=== PATIENT | male | born 1980 | race Native Hawaiian/Other Pacific Islander ===

== ENCOUNTER 2016-08-11 10:03 | Emergency (ER) | payer OTHER ==
[2016-08-11 10:07] VITALS: BMI 34.4
[2016-08-11] MEDS ORDERED: Naproxen 550 mg Tab PO STA (10:40)
[2016-08-11] MEDS ORDERED: Lidocaine/Prilocaine 2.5%-2.5% Cream (5 gm) EXT STA (10:40)
[2016-08-11] MEDS ORDERED: Naproxen 550 mg Tab PO ONE (10:47)
[2016-08-11 11:10] VITALS: BP 112/76; PULSE 74; RESP 20; TEMP 98.2; O2SAT 94
[2016-08-11] MEDS ORDERED: Epinephrine /Lidocaine HCL 1:100,000/2% 30 ml INFIL ONE (11:20)
[2016-08-11] MEDS ORDERED: Lidocaine 2% w Epi 1:100,000 Inj IJ ONE (11:23)
[2016-08-11] MEDS ORDERED: Tmp-Smz 800 mg-160 mg DS Tab PO STA (12:02)
--- NOTE | 2016-08-11 12:03 | C.PDOC ---
History Of Present Illness Pt c/o painful/swollen area. He has h/o Pilonidal cyst and feels the same way. Time Seen by Provider: 08/11/16 10:11 Chief Complaint (Nursing): Abnormal Skin Integrity History Per: Patient Onset/Duration Of Symptoms: Days (3) Current Symptoms Are (Timing): Still Present Location Of Injury: Posterior: Back (lower) Quality Of Symptoms: Painful, Swollen Severity: Moderate Additional History Per: Prior Records Past Medical History Reviewed: Historical Data, Nursing Documentation, Vital Signs Vital Signs: Last Vital Signs Temp 98.2 F 08/11/16 11:09 Pulse 74 08/11/16 11:09 Resp 20 08/11/16 11:09 BP 112/76 08/11/16 11:09 Pulse Ox 94 L 08/11/16 11:09 - Medical History Other PMH: Pilonidal cyst Surgical History: Tonsillectomy Family History: States: Unknown Family Hx - Social History Hx Alcohol Use: No Hx Substance Use: No - Immunization History Hx Tetanus Toxoid Vaccination: No Hx Influenza Vaccination: Yes Hx Pneumococcal Vaccination: No Review Of Systems Except As Marked, All Systems Reviewed And Found Negative. Constitutional: Negative for: Fever, Chills, Weakness Respiratory: Negative for: Shortness of Breath Gastrointestinal: Negative for: Vomiting, Abdominal Pain Genitourinary: Negative for: Dysuria, Scrotal Pain Musculoskeletal: Negative for: Neck Pain Neurological: Negative for: Weakness, Numbness, Seizures, Altered Mental Status Physical Exam - Physical Exam Appears: Non-toxic, No Acute Distress Skin: Normal Color, Warm, Dry, No Rash Head: Atraumatic, Normacephalic Eye(s): bilateral: Normal Inspection, PERRL, EOMI Neck: Normal ROM, Supple Cardiovascular: Rhythm Regular Respiratory: Normal Breath Sounds, No Accessory Muscle Use Gastrointestinal/Abdominal: Soft, No Tenderness Back: No CVA Tenderness, Other (Tender, indurated area in sacral area) Extremity: Normal ROM Neurological/Psych: Oriented x3, Normal Motor, Normal Sensation ED Course And Treatment O2 Sat by Pulse Oximetry: 94 Reassessment Condition: Improved - Incision & Drainage Of Abscess Anesthesia: Lidocaine 2%, With Epi Prep Used: Betadine Procedure: Incised W/Scalpel Blade#: (11), Drained Pus, Probed To Break Up Loculations, Packed W/Gauze, Cultures Obtained And Sent To Lab Disposition Counseled Patient/Family Regarding: Studies Performed, Diagnosis, Need For Followup, Rx Given - Disposition Referrals: Zuleika Parson MD [Staff Provider] - Disposition: HOME/ ROUTINE Disposition Time: 12:08 Condition: IMPROVED Additional Instructions: Packing removal/change in 2-3 days. Follow up with a surgeon for further evaluation and treatment. Return to the ER if you develop fever, worsening of symptoms or if you have any other concerns. Prescriptions: Sulfamethoxazole/Trimethoprim [Bactrim DS 800 mg-160 mg] 1 tab PO BID #14 tab Instructions: Abscess Incision and Drainage (ED) - Clinical Impression Clinical Impression: Pilonidal abscess
[2016-08-11] MEDS ORDERED: Tmp-Smz 800 mg-160 mg DS Tab ONE (12:09)
== END 2016-08-11 12:17 | disposition home or self-care (01) ==
LOC: C.ER 10:03
DX: L05.01 Pilonidal cyst with abscess (principal); B96.89 Other specified bacterial agents as the cause of diseases classified elsewhere

== ENCOUNTER 2017-08-15 16:29 | Emergency (ER) | payer BC ==
[2017-08-15 16:30] VITALS: BMI 34.4
[2017-08-15 16:40] VITALS: BP 109/76; PULSE 62; RESP 16; TEMP 97.7; O2SAT 98
--- NOTE | 2017-08-15 17:46 | C.PDOC ---
History Of Present Illness <Emeli Turner - Last Filed: 08/15/17 18:52> <Steve Dc - Last Filed: 08/17/17 15:15> 37 y/o male presents to ED with complaints of dark green stool last night and bright red blood in stool today. Patient was seen at ED 2 weeks ago and scheduled for a colonoscopy in 1 week but requests it be done today. Patient admits to constipation and denies fever, chills, abdominal pain, dysuria, weakness or back pain. (Emeli Turner) History Per: Patient History/Exam Limitations: no limitations Onset/Duration Of Symptoms: Days Current Symptoms Are (Timing): Still Present <Emeli Turner - Last Filed: 08/15/17 18:52> <Steve Dc Last Filed: 08/17/17 15:15> Time Seen by Provider: 08/15/17 17:26 Chief Complaint (Nursing): GI Problem Past Medical History Reviewed: Historical Data, Nursing Documentation, Vital Signs - Medical History PMH: HTN Surgical History: Tonsillectomy Family History: States: No Known Family Hx - Social History Hx Alcohol Use: No Hx Substance Use: No - Immunization History Hx Tetanus Toxoid Vaccination: No Hx Influenza Vaccination: Yes Hx Pneumococcal Vaccination: No <Emeli Turner - Last Filed: 08/15/17 18:52> Vital Signs: Last Vital Signs Temp 97.7 F 08/15/17 16:38 Pulse 62 08/15/17 16:38 Resp 16 08/15/17 16:38 BP 109/76 08/15/17 16:38 Pulse Ox 98 08/15/17 18:52 Review Of Systems Constitutional: Negative for: Fever, Chills Respiratory: Negative for: Shortness of Breath Gastrointestinal: Positive for: Constipation. Negative for: Nausea, Vomiting Genitourinary: Negative for: Dysuria Musculoskeletal: Negative for: Back Pain Skin: Negative for: Rash <Emeli Turner - Last Filed: 08/15/17 18:52> Physical Exam - Physical Exam Appears: Non-toxic, No Acute Distress Skin: Warm, Dry, No Rash Head: Atraumatic, Normacephalic Eye(s): bilateral: Normal Inspection Oral Mucosa: Moist Neck: Normal ROM, Supple Cardiovascular: Rhythm Regular Respiratory: Normal Breath Sounds, No Rales, No Rhonchi, No Wheezing Gastrointestinal/Abdominal: Soft, No Tenderness, No Guarding, No Rebound Rectal: Heme Negative, No Maroon Stool, No Hemorrhoids, No Tenderness Back: No CVA Tenderness, No Paraspinal Tenderness Neurological/Psych: Oriented x3, Normal Speech, Normal Cognition <Emeli Turner - Last Filed: 08/15/17 18:52> ED Course And Treatment - Laboratory Results Result Diagrams: 08/15/17 17:48 O2 Sat by Pulse Oximetry: 98 (RA) Pulse Ox Interpretation: Normal <Emeli Turner - Last Filed: 08/15/17 18:52> - Laboratory Results Result Diagrams: 08/15/17 17:48 <Steve Dc - Last Filed: 08/17/17 15:15> Medical Decision Making: Impression: anxiety, rectal bleeding, constipation Prior records reviewed: patient recently evaluated in ED 07/28/17 and had complete workup including labs and CT of abdomen. Labs were unremarkable and negative occult stool. CT showed no acute abdominal pelvic pathology. Patient is asking to have colonoscopy performed today, he wants to know if he has cancer. I explained to the patient colonoscopy is a surgical procedure and cannot be done today or in any emergency room. I also tried to explain to patient cancer should not be the main concern and there are other pathologies that can explain his symptoms. Patient still is nervous and wants tests done, another CT or type of test. I do not recommend CT abdomen as patient had study 2 weeks ago and additionally he does not have any pain or other signs concerning for infectious or surgical pathology. Will order CBC as patient is now concerned he is anemic and send stool. Results reviewed negative for blood in stool and normal H/H Patient remained well, resting comfortably on stretcher in no distress. Vital signs stable. Abdomen soft and non tender. Discussed results with the patient and explain the labs are normal and he should await scheduled colonoscopy with GI. Patient stable for discharge. (Emeli Turner) Disposition - Disposition Disposition Time: 18:01 - POA Present On Arrival: None <Emeli Turner - Last Filed: 08/15/17 18:52> <Steve Dc Last Filed: 08/17/17 15:15> - Disposition Disposition: HOME/ ROUTINE Condition: GOOD Additional Instructions: Please follow up with GI specialist and have colonoscopy as scheduled Instructions: Bloody Stools, Adult (DC) Forms: [employer] ([place]) - Clinical Impression Clinical Impression: Rectal bleeding - PA / [employer] APPLICATION SUPERVISOR / Resident Statement MD/DO has reviewed & agrees with the documentation as recorded. - Scribe Statement The provider has reviewed the documentation as recorded by the Scribe <Emeli Turner - Last Filed: 08/15/17 18:52> <Stvee Dc - Last Filed: 08/17/17 15:15> - Scribe Statement Boone Calles All medical record entries made by the Scribe were at my direction and personally dictated by me. I have reviewed the chart and agree that the record accurately reflects my personal performance of the history, physical exam, medical decision making, and the department course for this patient. I have also personally directed, reviewed, and agree with the discharge instructions and disposition. (Emeli Turner)
[2017-08-15 17:51] LABS: HEMOGLOBIN 15.2 g/dL (12.0-18.0); MEAN CORPUSCULAR HEMOGLOBIN 26.9 pg (27.0-31.0); MEAN CORPUSCULAR HGB CONC 34.1 g/dL (33.0-37.0); MEAN PLATELET VOLUME 8.8 fL (7.2-11.7); RBC 5.65 Mil/uL (4.40-5.90); WHITE BLOOD COUNT 9.8 K/uL (4.8-10.8)
== END 2017-08-15 18:27 | disposition home or self-care (01) ==
LOC: C.ER 16:29
DX: K62.5 Hemorrhage of anus and rectum (principal); I10 Essential (primary) hypertension
CPT/HCPCS: 36415; 85027; 99283; G0328